=== PATIENT | female | born 1985 | race Asian ===

== ENCOUNTER 2017-01-19 11:07 | Outpatient (CLI) | payer MEDICAID ==
[~2017-01-19] VITALS: Ht 154.9 cm; Wt 60.7 kg
[2017-01-19] MEDS ORDERED: PRENAT PO (11:13)
[2017-01-19 11:14] VITALS: Ht 154.9 cm; Wt 60.7 kg
[2017-01-19 11:16] VITALS: BP 108/66; PULSE 72; RESP 18
--- NOTE | 2017-01-19 12:23 | RADRPT ---
PROCEDURE: OB ultrasound for biophysical profile CLINICAL INDICATION: Poor tone. TECHNIQUE: Multiple sonographic images of the pelvis were obtained. Transabdominal views of the g ravid uterus are available for review. The images were reviewed on a PACS workstation. COMPARISON: None FINDINGS: breathing movement = 2/2 tone = 2/2 motion = 2/2 JACKELYN = 2/2 JACKELYN = 16.4 cm Single live intrauterine with cardiac activity of 144 bpm. position is cephal ic. The placenta is left lateral. IMPRESSION: 1. Single live intrauterine gestation. 2. Biophysical profile = 8/8. 3. JACKELYN = 16.4 cm. RPTAT: HH .Jeannine Mcallister MD, MD Date Time Electronically viewed and signed by .Jeannine Mcallister MD, on 01/19/2017 12:23 .G/
--- NOTE | 2017-01-19 12:25 | RADRPT ---
PROCEDURE: US OB. CLINICAL INDICATION: Decreased movement TECHNIQUE: Multiple sonographic images of the pelvis were obtained. Transabdominal imaging only w as performed. The images were reviewed on a PACS workstation. COMPARISON: No prior studies are available for comparison. FINDINGS: There is a single live intrauterine gestation. Cardiac activity is present with 137 beats per minut e. position is cephalic. Measurements were made in order to determine age. The results are as follows: BPD = 8.77 cm HC = 31.80 cm AC = 36.65 cm FL = 7.54 cm. Estimated gestational age of approximately 37 weeks 4 days. The estimated date of delivery is 02/05/2017. The EFW = 3617 g, 56.6 %ile. The placenta is left lateral. There is no evidence for an abruption or placenta previa. There are no adnexal masses. IMPRESSION: 1. Single live intrauterine gestation of approximately 37 weeks 4 days, by ultrasound criteria. 2. The estimated date of delivery is 02/05/2017. 3. The estimated weight is 3617 g, 56.6 %ile. RPTAT: HH .Jeannine Mcallister MD, Date Time Electronically viewed and signed by .Jeannine Mcallister MD, on 01/19/2017 12:24 .G/
--- NOTE | 2017-01-19 13:26 | PN ---
Triage Information Date/Time Reason for visit: Uterine contractions Weeks of Gestation 39 weeks and 4 days /Para Diabetes: none Hypertention: none Objective Vital Signs Date Time Temp Pulse Resp B/P Pulse Ox O2 Delivery O2 Flow Rate FiO2 01/19/17 11:16 98.1 72 18 108/66 Room Air Heart Rate: 130's Contractions: >10 Minutes Apart Exam Pelvic examination cervix closed 40% effaced 6 at -1 -2 station Disposition: Discharge Assessment/Plan 39 weeks 4 days 1 para 0 rule out labor contractions mild far apart patient only feels tightening of the abdomen pelvic examination cervix 1 cm 40% effaced vertex at -2 station and had biophysical profile 02/19 admitted weight approximately 3600 g patient discharged home with the lid instruction recommended to follow at the clinic on her appointment TAMI POZO MD Jan 19, 2017 13:26
--- NOTE | 2017-01-19 14:19 | TRIAGE ---
OB Triage Datetime Report Generated by CPN: 01/19/2017 14:19 Datetime: 01/19/2017 11:54 Labor Evaluation Frequency: 2-7 Monitor Mode: External Duration (sec)2399: 30-180 Quality: Moderate Pattern: Normal: <= 5 Contractions in 10 Minutes Resting Tone [place]: Relaxed Heart Rate FHR Baseline Rate: 140 Monitor Mode: External US FHR Baseline Changes: No Baseline Change Variability: Moderate 6-25 bpm Accelerations: 15X15 Decelerations: None Category: Category I Comments: NST done. Monitors removed Pain Assessment Pain Presence: None/Denies Pain Assessment Comments: Pt denies having pain or pressure with contractions, no pain Datetime: 01/19/2017 11:22 Time of Arrival: 01/19/2017 10:55 EGA: 39.4 Arrived By: Ambulatory Arrived From: Home Chief Complaint: Sent from clinic to come today for BPP/EFW/NST Movement: Present Contractions: Denies/Absent Rupture of Membranes: Denies Vaginal Discharge: Denies Recent Sexual Intercouse: Denies Abdominal Trauma: Not Applicable Patient Complaints: None Time Provider Notified: 01/19/2017 12:49 Provider Notified: [facility] Initial Plan: BPP/EFW/NST Datetime: 01/19/2017 11:10 Assessment Type: Triage Maternal Assessment Level of Consciousness: Fully Conscious DTR's/Clonus: DTRs 2+; No Clonus Headache: Denies Blurred Vision: No Respiratory Effort: Unlabored; Regular Rhythm; Equal Expansion Breath Sounds, Left: Clear and Equal Breath Sounds, Right: Clear and Equal Nausea/Vomiting: Denies RUQ Epigastric Pain: Denies Lower Extremities Edema: None Degree: None Upper Extremities Edema: None Degree: None Facial Edema: None Fall Risk Assessment History of Falling: (0) No Secondary Diagnosis: (0) No Ambulatory Aid: (0) Bedrest/Nurse Assist IV Therapy: (0) No Gait: (0) Normal/Bedrest/Immobile Mental Status: (0) Oriented to Own Ability Fall Score: 0 Fall Risk Score Definition: No Risk: No action required Datetime: 01/19/2017 11:08 Stage of : OB Triage
== END 2017-01-19 13:35 | disposition home or self-care (01) ==
LOC: OBT 11:07 → L-D 11:08 → OBT 13:35
PROVIDERS: ATTEND Obstetrics & Gynecology
DX: O62.9 Abnormality of forces of labor, unspecified (principal); Z3A.39 39 weeks gestation of pregnancy
CPT/HCPCS: 76815; 76818; Z7500; G0463

== ENCOUNTER 2017-01-25 02:50 | Inpatient (IN) | payer MEDICAID ==
[~2017-01-25] VITALS: Ht 154.9 cm; Wt 63.3 kg
[~2017-01-25 02:50] MED LIST: PRENAT PO
[2017-01-25 03:19] VITALS: BP 99/68; PULSE 61; RESP 18
[2017-01-25] MEDS ORDERED: OXYTOCIN 30 UNITS/LR 500 ML IV SCH ×3 (04:30→17:30)
[2017-01-25] MEDS ORDERED: BUTORPHANOL 2 MG INJ IV PRN (04:30)
[2017-01-25] MEDS ORDERED: MISOPROSTOL 200 MCG TAB PR PRN (04:30)
[2017-01-25] MEDS ORDERED: CARBOPROST 250 MCG INJ IM PRN (04:30)
[2017-01-25] MEDS ORDERED: LIDOCAINE 1% (MPF) 30 ML INJ INJ PRN (04:30)
[2017-01-25] MEDS ORDERED: METHYLERGONOVINE 0.2 MG INJ IM PRN (04:30)
[2017-01-25] MEDS ORDERED: MINERAL OIL LIGHT 10 ML VIAL TOP ONE (04:30)
[2017-01-25] MEDS ORDERED: OXYTOCIN 30 UNITS/LR 500 ML IV PRN (04:30)
[2017-01-25] MEDS ORDERED: IBUPROFEN 600 MG TAB PO PRN (04:30)
[2017-01-25] MEDS: LACTATED RINGER'S 1,000 ML IV SCH ×4 (05:06→23:22)
[2017-01-25 05:19] LABS: BASOPHILS % 0.2 % (0.0-2.0); EOSINOPHILS # 0.1 10^3/ul (0.0-0.5); EOSINOPHILS % 0.7 % (0.0-7.0); HEMATOCRIT 34.5 % (37.0-47.0); HEMOGLOBIN 11.8 g/dl (12.0-16.0); LYMPHOCYTES # 1.9 10^3/ul (0.8-2.9); LYMPHOCYTES % 16.8 % (15.0-51.0); MEAN CORPUSCULAR HEMOGLOBIN 29.9 pg (29.0-33.0); MEAN CORPUSCULAR HGB CONC 34.2 g/dl (32.0-37.0); MEAN CORPUSCULAR VOLUME 87.3 fl (82.0-101.0); MEAN PLATELET VOLUME 10.1 fl (7.4-10.4); MONOCYTES % 8.6 % (0.0-11.0); NEUTROPHIL # 8.3 10^3/ul (1.6-7.5); NEUTROPHILS % 72.8 % (39.0-77.0); PLATELET COUNT 251 10^3/UL (140-415); RED BLOOD COUNT 3.95 10^6/ul (4.20-5.40); RED CELL DISTRIBUTION WIDTH 13.8 % (11.5-14.5); WHITE BLOOD COUNT 11.3 10^3/ul (4.8-10.8)
--- NOTE | 2017-01-25 05:22 | TRIAGE ---
OB Triage Datetime Report Generated by CPN: 01/25/2017 05:22 Datetime: 01/25/2017 05:00 Assessment Type: Admission Assessment Maternal Assessment Level of Consciousness: Fully Conscious DTR's/Clonus: DTRs 2+; No Clonus Headache: Denies Headache: Denies Blurred Vision: No Blurred Vision: Yes Respiratory Effort: Unlabored; Regular Rhythm; Equal Expansion Breath Sounds, Left: Clear and Equal Breath Sounds, Right: Clear and Equal Nausea/Vomiting: Denies RUQ Epigastric Pain: Denies Lower Extremities Edema: None Degree: None Upper Extremities Edema: None Degree: None Facial Edema: None Fall Risk Assessment History of Falling: (0) No Secondary Diagnosis: (0) No Ambulatory Aid: (0) Bedrest/Nurse Assist IV Therapy: (0) No Gait: (0) Normal/Bedrest/Immobile Mental Status: (0) Oriented to Own Ability Datetime: 01/25/2017 03:59 Vaginal Exam Dilatation (cms): 3.0 Datetime: 01/25/2017 03:55 Vaginal Exam Dilatation (cms): 3.5 Effacement (%): 60 Station: -2 Exam By: SRIDHAR Membrane Status: Intact Datetime: 01/25/2017 03:53 Stage of : OB Triage Vaginal Exam Dilatation (cms): 3.0 Effacement (%): 60 Station: -2 Exam By: Sander Martinez RN Membrane Status: Intact Vaginal Bleeding: Scant Cervix, Consistency: Soft Cervix, Position: Posterior Presentation 'A': Cephalic Datetime: 01/25/2017 03:40 Labor Evaluation Frequency: 3-6 Monitor Mode: External Quality: Moderate Pattern: Normal: <= 5 Contractions in 10 Minutes Resting Tone [place]: Relaxed Heart Rate FHR Baseline Rate: 135 Monitor Mode: External US FHR Baseline Changes: No Baseline Change Variability: Moderate 6-25 bpm Accelerations: 10X10 Decelerations: None Category: Category I Datetime: 01/25/2017 03:28 Time of Arrival: 01/25/2017 02:52 EGA: 40.3 Arrived By: Wheelchair Arrived From: Home Chief Complaint: c/o ucs Movement: Present Contractions: Regular Rupture of Membranes: Denies Vaginal Bleeding: Scant Vaginal Discharge: Present Recent Sexual Intercouse: Denies Abdominal Trauma: Not Applicable Patient Complaints: Contractions Time Provider Notified: 01/25/2017 04:00 Provider Notified: Dr Yee Initial Plan: EFM,SVE Datetime: 01/25/2017 03:13 Stage of : OB Triage Maternal Assessment Level of Consciousness: Fully Conscious Headache: Denies Blurred Vision: No Respiratory Effort: Unlabored Nausea/Vomiting: Denies RUQ Epigastric Pain: Denies Facial Edema: None Monitor Mode: External Quality: Moderate Resting Tone [place]: Relaxed Heart Rate FHR Baseline Rate: 130 Monitor Mode: External US Accelerations: 15X15 Decelerations: None Category: Category I Pain Assessment Pain Scale: 6 Pain Presence: Intermittent Pain Type: Contraction Pain Location: Abdomen Datetime: 01/19/2017 11:22 EGA: 39.4 Datetime: 01/19/2017 11:10 Fall Score: 0 Fall Risk Score Definition: No Risk: No action required
[2017-01-25 05:35] LABS: INR 0.86; PARTIAL THROMBOPLASTIN TIME 26.1 Sec (25.0-35.0); PROTIME 11.7 Sec (12.2-14.2); PT RATIO 0.9
--- NOTE | 2017-01-25 07:04 | HP ---
Date/Time of Note Date/Time of Note DATE: 01/25/17 TIME: 06:53 OB - History Hx of Present Free Text/Dictation 31 y.o primigravida at 40w3d with c/o uterine contractions every 4min apart since 2300 01/24/17. had care in different clinic till November when she was transferred to present clinic. Initial VE 3/60%/-2 EFM tracing reactive admitted for expectant management GBS neg chlamydia pos treated recheck neg Chief Complaint: uterine contraction Estimated Due Date: Jan 22, 2017 : 1 Para: 0 Spontaneous : 0 Therapeutic : 0 Care: Other Ultrasounds: Other Obstetrical Complications: None Medical Complications: None Past Family/Social History * Past Medical, Surgical, Family and Obstetric Histories reviewed from chart. Blood Type: Unknown Rubella: unknown RPR/VDRL: Unknown GBS Status: Negative HBsAG: Unknown OB Admission Exam Vital Signs Vital Signs Vital Signs Date Time Temp Pulse Resp B/P Pulse Ox O2 Delivery O2 Flow Rate FiO2 01/25/17 03:19 97.8 61 18 99/68 Room Air Physical Exam HEENT: WNL Heart: Rhythm Normal Lungs: Clear, Equal Abdomen: WNL Extremities: Normal Reflexes: Normal Cervical Dilatation: 3cm Effacement: Other (60%) Station: -2 Membranes: Intact Amniotic Fluid: Unevaluable Heart Rate: 140's Accelerations: Accelerations Present Decelerations: No Decelerations Varibility: Moderate Contractions on Admission: < 5 Minutes Apart Intensity: Moderate Last 72 hours Lab Results CBC & BMP 01/25/17 05:00 OB Assessment/Plan Reason for admission: active labor Plan: Expectant Management JANEEN GORDILLO MD Jan 25, 2017 07:03
[2017-01-25] MEDS: LACTATED RINGER'S 1,000 ML IV PRN ×2 (07:55→08:47)
[2017-01-25] MEDS ORDERED: FENTAnyl 2MCG/ML-ROPIV 0.2% 100 ML ONE (08:34)
[2017-01-25] MEDS ORDERED: DIPHENHYDRAMINE 50 MG INJ IV PRN (15:00)
[2017-01-25] MEDS ORDERED: NALOXONE (0.4 MG/ML) INJ IV PRN (15:00)
[2017-01-25] MEDS: ONDANSETRON 4 MG INJ IV PRN (15:05)
[2017-01-25] MEDS: FENTAnyl 2MCG/ML-ROPIV 0.2% 100 ML BAG EPI SCH (15:50)
[2017-01-26] MEDS: FENTAnyl 2MCG/ML-ROPIV 0.2% 100 ML BAG EPI SCH ×3 (00:11→11:23)
[2017-01-26] MEDS: LACTATED RINGER'S 1,000 ML IV SCH ×3 (07:24→23:58)
--- NOTE | 2017-01-26 10:50 | RADRPT ---
PROCEDURE: US OB. CLINICAL INDICATION: Size and dates TECHNIQUE: Multiple sonographic images of the pelvis and gravid uterus were obtained. The images were reviewed on a PACS workstation. COMPARISON: 01/19/17 FINDINGS: There is a single viable intrauterine gestation. Cardiac activity is present with 125 beats per min johny. There is a vertex presentation. The placenta is posterior. There is no evidence for an abruption or placenta previa. Measurements were made in order to determine age. The results are as follows: BPD =8.7 cm HC =31.7 cm AC =33.7 cm FL =7.4 cm Estimated gestational age of approximately 36 weeks and 4 days based on ultrasound measurements. Clinical age: 40 weeks and 4 days. The estimated date of delivery is 02/19/17, based on ultrasound measurements. The EFW = 3116 g, 10%, based on LMP age. RPTAT: AA IMPRESSION: Single viable intrauterine gestation of approximately 36 weeks and 4 days based on ultrasound measu rements. Smaller than clinical age by 4 weeks. .Jd Bryan MD, MD Date Time Electronically viewed and signed by .Jd Bryan MD, on 01/26/2017 10:49 .S/
[2017-01-26] MEDS ORDERED: CEFAZOLIN 2 GM/50 ML (PMX) 50 ML IVPB ONE ×2 (12:54→13:00)
[2017-01-26] MEDS: ONDANSETRON 4 MG INJ IV PRN (13:35)
[2017-01-26] MEDS ORDERED: LIDOCAINE 2%/EPI MPF (SDV) 20 ML VIAL ONE (14:00)
[2017-01-26] MEDS ORDERED: CEFAZOLIN 1 GM INJ ONE (14:00)
[2017-01-26] MEDS ORDERED: OXYTOCIN 30 UNITS/LR 500 ML BAG IV ONE (14:00)
[2017-01-26] MEDS ORDERED: FENTAnyl 50 MCG/ML VIAL ONE (14:21)
[2017-01-26] MEDS ORDERED: MIDAZOLAM 1 MG/ML 2 ML INJ ONE (14:35)
[2017-01-26] MEDS ORDERED: DEXAMETHASONE 4 MG/ML 1 ML INJ ONE (14:39)
[2017-01-26] MEDS ORDERED: OXYTOCIN 10 UNIT INJ ONE (14:54)
[2017-01-26] MEDS ORDERED: morphine SULFATE/PF (10 MG/10 ML) INJ ONE (14:56)
--- NOTE | 2017-01-26 15:48 | PN ---
Date/Time of Note Date/Time of Note DATE: 01/26/17 TIME: 15:42 OB Subjective Subjective Subjective at 40 + wks ga AROM positive thick meconium vaginal exam 6/100%/ -2 NST positive variable decels toco regular contraction on oxytocin A/P Patient remained at 6 cm for more than 4hrs Patient was counseled regarding primary LTCS secondary to CPD/ failure to descent All risks including but not limited to infection, bleeding, possible trauma to other organs were discussed with the patient All questions were answered. Patient understood and agreed to proceed with primary C/section KOREY MACDONALD MD Jan 26, 2017 15:48
[2017-01-26] MEDS ORDERED: KETOROLAC 30 MG INJ ONE (15:56)
--- NOTE | 2017-01-26 15:58 | OPR ---
Operative Report Planned Procedure Free Text/Dictation at 40 + wks gestation with CPD/ failure to descent Procedure date Jan 26, 2017 Procedure(s) Primary LTCS Performed by Korey Macdonald MD Assisting provider: TERRIE VICTORIA M.D. Anesthesiologist: ANEUDY EVANS Pre-procedure diagnosis CPD/ failure to descent Anesthesia Type: epidural Procedure Description Under satisfactory [epidural] anesthesia, the patient was prepped and draped and placed in a supine position, tilted to the left. Pfannenstiel incision was made, carried through the subcutaneous tissue. Bleeders brought under control with electrocautery. Fascia incised to the length of the incision. Rectus muscles from the fascia, divided midline. Peritoneum exposed, entered through a transverse incision. Exploration of abdomen revealed gravid uterus. Bladder flap was developed. Transverse incision was made in the lower segment of the uterus. Amniotic sac ruptured. [thick meconium] amniotic fluid noted. Nasal oropharyngeal suction was performed. The baby was handed to the team for immediate attention. The placenta was delivered manually intact. Uterine cavity was cleaned with wet sponge and drainage established. Uterus closed in 2 layers using [1.0 Vicryl] in running locked and second layer imbricating fashion. Peritoneal cavity irrigated with warm saline. Sponge, needle and instrument count reported to be correct. Abdominal peritoneum closed with [2.0 Vicryl] continuously. Rectus muscle approximated with [2.0 Vicryl]. Fascia closed with [0 Vicryl in two separate segment], and skin closed with End- sorb min. Estimated blood loss [500]mL. Urine bag contained [150]mL of urine. IVF 1200 cc Post-Procedure Findings: Live Baby [girl], Apgars [9,9], weight [3520gr/7 lbs. 13 oz.] Estimated blood loss: other (500) Specimen(s): yes (see below) Specimen(s) description placenta Grafts/Implants: no Complication(s): no Pt Condition post procedure: stable Disposition: PACU Physician Certification I, the undersigned physician, hereby certify that I have discussed the procedure described in this consent form with this patient (or the patient's legal account service representative), including: * The risk and benefits of the procedure; * Any adverse reactions that may reasonably be expected to occur; * Any alternative efficacious methods of treatment which may be medically viable ; * The potential problems that may occur during recuperation; * Potential for blood transfusion and associated risks/benefits; and * Any research or economic interest I may have regarding this treatment. I further certify that the patient/legally responsible person was encouraged to ask question and that all questions were answered. KOREY MACDONALD MD Jan 26, 2017 15:58
[2017-01-26] MEDS ORDERED: HYDROmorphONE 1 MG/ML SYG IV PRN ×2 (16:00)
[2017-01-26] MEDS ORDERED: ACETAMINOPHEN 325 MG TAB PO PRN (16:00)
[2017-01-26] MEDS ORDERED: MAGNESIUM HYDROXIDE 30ML CUP PO PRN (16:00)
[2017-01-26] MEDS ORDERED: DIPHENHYDRAMINE 50 MG INJ IV PRN (16:00)
[2017-01-26] MEDS ORDERED: SENNA/DOCUSATE NA (8.6MG/50MG) TAB PO PRN (16:00)
[2017-01-26] MEDS ORDERED: CARBOPROST 250 MCG INJ IM PRN (16:00)
[2017-01-26] MEDS ORDERED: BISACODYL 10 MG SUPP PR PRN (16:00)
[2017-01-26] MEDS ORDERED: ONDANSETRON 4 MG INJ IV PRN ×2 (16:00)
[2017-01-26] MEDS ORDERED: ZOLPIDEM 5 MG TAB PO PRN (16:00)
[2017-01-26] MEDS ORDERED: MISOPROSTOL 200 MCG TAB PR PRN (16:00)
[2017-01-26] MEDS ORDERED: LANOLIN 7 GM TUBE TOP PRN (16:00)
[2017-01-26] MEDS ORDERED: NALOXONE (0.4 MG/ML) INJ IV PRN (16:00)
[2017-01-26] MEDS ORDERED: METHYLERGONOVINE 0.2 MG INJ IM PRN (16:00)
[2017-01-26] MEDS ORDERED: OXYTOCIN 30 UNITS/LR 500 ML IV PRN (16:00)
[2017-01-26] MEDS: KETOROLAC 30 MG INJ IV PRN (16:01)
[2017-01-26] MEDS: OXYTOCIN 30 UNITS/LR 500 ML IV SCH ×2 (17:22→20:55)
[2017-01-26 18:15] VITALS: BP 126/77; PULSE 86; RESP 18
[2017-01-26 18:36] VITALS: BP 110/72; PULSE 87; RESP 18
[2017-01-26 20:00] VITALS: BP 119/67; PULSE 78; RESP 18
[2017-01-26] MEDS: CEFAZOLIN 1 GM/50 ML (PMX) 50 ML IVPB SCH (21:45)
[2017-01-27] VITALS: BP 115/74; PULSE 82; RESP 17
[2017-01-27] MEDS: LACTATED RINGER'S 1,000 ML IV SCH ×7 (01:23→23:58)
[2017-01-27 04:00] VITALS: BP 104/56; PULSE 80; RESP 17
[2017-01-27] MEDS: CEFAZOLIN 1 GM/50 ML (PMX) 50 ML IVPB SCH ×2 (05:53→14:17)
[2017-01-27] MEDS: KETOROLAC 30 MG INJ IV PRN ×2 (06:06→12:45)
[2017-01-27 07:45] VITALS: BP 81/54; PULSE 64; RESP 16
[2017-01-27 09:32] LABS: ABNORMAL IP MESSAGE 1; BASOPHILS % 0.1 % (0.0-2.0); EOSINOPHILS # 0.1 10^3/ul (0.0-0.5); EOSINOPHILS % 0.3 % (0.0-7.0); HEMATOCRIT 24.9 % (37.0-47.0); HEMOGLOBIN 8.6 g/dl (12.0-16.0); LYMPHOCYTES # 2.3 10^3/ul (0.8-2.9); MEAN CORPUSCULAR HEMOGLOBIN 30.5 pg (29.0-33.0); MEAN CORPUSCULAR HGB CONC 34.5 g/dl (32.0-37.0); MEAN CORPUSCULAR VOLUME 88.3 fl (82.0-101.0); MONOCYTE # 1.6 10^3/ul (0.3-0.9); MONOCYTES % 8.5 % (0.0-11.0); NEUTROPHIL # 15.1 10^3/ul (1.6-7.5); PLATELET COUNT 177 10^3/UL (140-415); RED BLOOD COUNT 2.82 10^6/ul (4.20-5.40); RED CELL DISTRIBUTION WIDTH 14.1 % (11.5-14.5); WHITE BLOOD COUNT 19.4 10^3/ul (4.8-10.8)
[2017-01-27 09:40] LABS: POSITIVE DIFF @See below
[2017-01-27 09:51] LABS: ALBUMIN 2.2 g/dl (3.3-4.9); ALBUMIN/GLOBULIN RATIO 0.91; BILIRUBIN,INDIRECT 0.8 mg/dl (0-1.1); BILIRUBIN,TOTAL 0.8 mg/dl (0.2-1.3); CALCIUM 7.9 mg/dl (8.4-10.2); CREATININE 0.75 mg/dl (0.44-1.00); POTASSIUM 3.8 mmol/L (3.5-5.1); TOTAL PROTEIN 4.6 g/dl (6.1-8.1)
[2017-01-27 12:00] VITALS: BP 78/50; PULSE 81; RESP 16
[2017-01-27 15:30] VITALS: BP 87/51; PULSE 67; RESP 16
[2017-01-27] MEDS ORDERED: IBUPROFEN 600 MG TAB PO PRN (16:00)
[2017-01-27] MEDS ORDERED: OXYCODONE/ACETAMINOPHEN (5/325) TAB PO PRN (16:00)
[2017-01-27] MEDS: OXYCODONE/ACETAMINOPHEN (5/325) TAB PO PRN (17:50)
--- NOTE | 2017-01-27 18:30 | QN ---
Documentation Comment No complaint Afebrile VSS Abdomen soft ND POD #1 Stable Ambulate Advance diet. PRUDENCIO MOLINA MD Jan 27, 2017 18:30
[2017-01-27 20:00] VITALS: BP 98/54; PULSE 78; RESP 17
[2017-01-27] MEDS: DIBUCAINE 1% 30 GM OINT TOP SCH (22:35)
[2017-01-28] MEDS: OXYCODONE/ACETAMINOPHEN (5/325) TAB PO PRN ×2 (00:54→13:22)
[2017-01-28 04:00] VITALS: BP 94/61; PULSE 66; RESP 17
[2017-01-28 07:40] VITALS: BP 117/72; PULSE 89; RESP 19
[2017-01-28 10:01] LABS: BASOPHILS % 0.1 % (0.0-2.0); EOSINOPHILS # 0.1 10^3/ul (0.0-0.5); EOSINOPHILS % 0.4 % (0.0-7.0); HEMATOCRIT 27.5 % (37.0-47.0); LYMPHOCYTES # 2.1 10^3/ul (0.8-2.9); LYMPHOCYTES % 10.8 % (15.0-51.0); MEAN CORPUSCULAR HEMOGLOBIN 28.9 pg (29.0-33.0); MEAN CORPUSCULAR HGB CONC 32.7 g/dl (32.0-37.0); MEAN CORPUSCULAR VOLUME 88.4 fl (82.0-101.0); MEAN PLATELET VOLUME 10.1 fl (7.4-10.4); MONOCYTE # 1.1 10^3/ul (0.3-0.9); MONOCYTES % 5.7 % (0.0-11.0); NEUTROPHIL # 15.7 10^3/ul (1.6-7.5); NEUTROPHILS % 82.2 % (39.0-77.0); PLATELET COUNT 220 10^3/UL (140-415); RED BLOOD COUNT 3.11 10^6/ul (4.20-5.40); RED CELL DISTRIBUTION WIDTH 14.4 % (11.5-14.5); WHITE BLOOD COUNT 19.1 10^3/ul (4.8-10.8)
[2017-01-28] MEDS: DIBUCAINE 1% 30 GM OINT TOP SCH ×4 (10:48→21:06)
--- NOTE | 2017-01-28 15:41 | QN ---
Documentation Comment pod2 pt doing well vss exam wnl cdi ap pod 2 continue care DEANNE CONNELLY MD Jan 28, 2017 15:41
[2017-01-28 15:59] VITALS: BP 103/63; PULSE 87; RESP 18
[2017-01-28 20:00] VITALS: BP 101/60; PULSE 81; RESP 18
[2017-01-29 04:30] VITALS: BP 99/60; PULSE 75; RESP 18
[2017-01-29 08:00] VITALS: BP 107/65; PULSE 65; RESP 18
[2017-01-29] MEDS: DIBUCAINE 1% 30 GM OINT TOP SCH ×3 (09:05→17:00)
[2017-01-29 11:19] LABS: BASOPHILS % 0.1 % (0.0-2.0); EOSINOPHILS # 0.2 10^3/ul (0.0-0.5); EOSINOPHILS % 1.1 % (0.0-7.0); HEMATOCRIT 24.9 % (37.0-47.0); HEMOGLOBIN 8.4 g/dl (12.0-16.0); LYMPHOCYTES # 1.4 10^3/ul (0.8-2.9); LYMPHOCYTES % 9.1 % (15.0-51.0); MEAN CORPUSCULAR HEMOGLOBIN 30.3 pg (29.0-33.0); MEAN CORPUSCULAR HGB CONC 33.7 g/dl (32.0-37.0); MEAN CORPUSCULAR VOLUME 89.9 fl (82.0-101.0); MEAN PLATELET VOLUME 9.5 fl (7.4-10.4); MONOCYTE # 0.8 10^3/ul (0.3-0.9); MONOCYTES % 5.2 % (0.0-11.0); NEUTROPHIL # 12.5 10^3/ul (1.6-7.5); NEUTROPHILS % 83.5 % (39.0-77.0); PLATELET COUNT 216 10^3/UL (140-415); RED BLOOD COUNT 2.77 10^6/ul (4.20-5.40); RED CELL DISTRIBUTION WIDTH 14.2 % (11.5-14.5)
--- NOTE | 2017-01-29 14:03 | DS ---
Date/Time of Note Date/Time of Note DATE: 01/29/17 TIME: 14:02 Obstetrical Discharge Record Final Diagnosis Final Diagnosis: Term delivered Section Section: Primary Primary Indication CPD Condition on Discharge Physical Assessment Voiding: Yes Bowel Movement: Yes Breast: Soft, non-tender Fundus: Firm Abdomen and Incision: Incision intact Calf Tenderness: No Patient Condition: Stable PRUDENCIO MOLINA MD Jan 29, 2017 14:03
[2017-01-29 16:00] VITALS: BP 112/62; PULSE 72
== END 2017-01-29 18:35 | disposition home or self-care (01) | DRG 766 ==
LOC: OBT 02:50 → L-D 03:20 → OBT 04:00 → L-D 01-26 14:17 → PP1 01-26 18:07
PROVIDERS: ADMIT Obstetrics & Gynecology; ATTEND Obstetrics & Gynecology
PROC: 10D00Z1 Extraction of Products of Conception, Low, Open Approach (ICD-10-PCS; principal; 2017-01-26 14:00)
DX: O48.0 Post-term pregnancy (principal); O33.9 Maternal care for disproportion, unspecified; Z3A.40 40 weeks gestation of pregnancy; O62.0 Primary inadequate contractions; Z37.0 Single live birth
CPT/HCPCS: 36415; 62319; 76816; 80053; 85025; 85610; 85730; 86592; 86900; 86901; 87340; 88307; 99464; G0463; J0690; J1100; J1170; J1885; J2210; J2250; J2274; J2405; J2590; J3010; J7120

== ENCOUNTER 2017-02-04 11:27 | Emergency (ER) | payer MEDICAID ==
[~2017-02-04] VITALS: Ht 160 cm; Wt 54.0 kg
[2017-02-04 12:49] VITALS: Ht 160 cm; Wt 54.0 kg
[2017-02-04] MEDS ORDERED: CEPH-443 PO (12:49)
--- NOTE | 2017-02-04 13:07 | ERD ---
ER Documentation Chief Complaint Date/Time DATE: 02/04/17 TIME: 13:03 Chief Complaint 01/26 WITH DRAINAGE SINCE LAST SATURDAY HPI 31-year-old female presents to the emergency department with history of C- section on January [address] Juanita Fowler. Patient states that at the C- section site there is mild bleeding that she noted today. She denies any significant tenderness, fevers. Patient states she has appointment this saturday for follow-up ROS All systems reviewed and are negative except as per history of present illness. Medications Home Meds Active Scripts Cephalexin* (Keflex*) 500 Mg Capsule, 500 MG PO QID for 7 Days, CAP Prov:GREGORY IQBAL PA-C 02/04/17 Reported Medications Multivit/Min/Fol Ac/Iron/Pren* ( S*) 1 Tab Tab, 1 TAB PO DAILY, TAB 01/19/17 Allergies Allergies: Coded Allergies: No Known Allergy (Unverified , 01/25/17) PMhx/Soc Medical and Surgical Hx: pt denies Medical Hx History of Surgery: Yes ( 01/26/17) Anesthesia Reaction: No Hx Neurological Disorder: No Hx Respiratory Disorders: No Hx Cardiac Disorders: No Hx Psychiatric Problems: No Hx Miscellaneous Medical Probl: No Hx Alcohol Use: No Hx Substance Use: No Hx Tobacco Use: No Smoking Status: Never smoker Physical Exam Vitals Vital Signs Date Time Temp Pulse Resp B/P Pulse Ox O2 Delivery O2 Flow Rate FiO2 02/04/17 12:49 98.1 86 16 113/93 97 Physical Exam Const: [] Head: Atraumatic Eyes: Normal Conjunctiva ENT: Normal External Ears, Nose and Mouth. Neck: Full range of motion..~ No meningismus. Resp: Clear to auscultation bilaterally Cardio: Regular rate and rhythm, no murmurs Abd: Soft, non tender, non distended. Normal bowel sounds Skin: Seroma at site, no evidence of erythema, warmth or purulent drainage Back: No midline or flank tenderness Ext: No cyanosis, or edema Neur: Awake and alert Psych: Normal Mood and Affect Procedures/MDM This is a 31-year-old female presents to the emergency department with possible seroma, patient had a on January 26 with , No evidence of cellulitis, lymphangitis. Patient appears well and stable to be discharged home with prescription for Keflex and to follow-up with her surgeon today.\She understands and agrees this plan. I have consulted regarding this case , he agrees with plan above Departure Diagnosis: Primary Impression: Seroma Condition: Stable Patient Instructions: Seroma, Postsurgical Additional Instructions: FOLLOW UP WITH YOUR PRIMARY CARE PHYSICIAN TOMORROW.Return to this facility if you are not improving as expected. Take all medicines as directed. Return to this facility if you are not improving as expected. GREGORY IQBAL PA-C Feb 04, 2017 13:07
== END 2017-02-04 13:02 | disposition home or self-care (01) ==
LOC: FTE 11:27
DX: L76.34 Postprocedural seroma of skin and subcutaneous tissue following other procedure (principal)
CPT/HCPCS: 99283

== ENCOUNTER 2019-01-09 05:35 | Inpatient (IN) | payer OTHER ==
[~2019-01-09] VITALS: Ht 152.4 cm; Wt 63.7 kg
[~2019-01-09 05:35] MED LIST changes: +CEPH-443 PO; +DOCU-144 PO; +FER325 PO; +IBUP-1542 PO
[2019-01-09] MEDS ORDERED: OXYTOCIN 30 UNITS/LR 500 ML IV PRN ×2 (06:30→15:30)
[2019-01-09] MEDS ORDERED: CEFAZOLIN 2 GM/50 ML (PMX) 50 ML IVPB SCH (06:30)
[2019-01-09] MEDS ORDERED: METHYLERGONOVINE 0.2 MG INJ IM PRN ×2 (06:30→15:30)
[2019-01-09] MEDS ORDERED: MISOPROSTOL 200 MCG TAB PR PRN ×2 (06:30→15:30)
[2019-01-09] MEDS ORDERED: CARBOPROST 250 MCG INJ IM PRN ×2 (06:30→15:30)
[2019-01-09] MEDS: LACTATED RINGER'S 1,000 ML IV SCH ×2 (07:38→14:10)
[2019-01-09] MEDS ORDERED: OXYTOCIN 30 UNITS/LR 500 ML BAG IV ONE (09:17)
[2019-01-09] MEDS ORDERED: ONDANSETRON 4 MG INJ ONE (09:17)
[2019-01-09] MEDS ORDERED: OXYTOCIN 10 UNIT INJ ONE (09:17)
[2019-01-09] MEDS ORDERED: morphine SULFATE/PF (10 MG/10 ML) INJ ONE (09:17)
[2019-01-09] MEDS ORDERED: METOCLOPRAMIDE 10 MG INJ ONE (10:00)
[2019-01-09] MEDS: OXYTOCIN 30 UNITS/LR 500 ML IV SCH ×4 (10:40→23:17)
[2019-01-09] MEDS ORDERED: KETOROLAC 30 MG INJ IV PRN (11:00)
[2019-01-09] MEDS ORDERED: DIPHENHYDRAMINE 50 MG INJ IV PRN (11:00)
[2019-01-09] MEDS ORDERED: NALOXONE (0.4 MG/ML) INJ IV PRN (11:00)
[2019-01-09] MEDS ORDERED: ONDANSETRON 4 MG INJ IV PRN (11:00)
[2019-01-09] MEDS ORDERED: morphine 2 MG INJ IV PRN (11:00)
[2019-01-09 15:25] VITALS: BP 99/54; PULSE 62; RESP 18
[2019-01-09] MEDS ORDERED: OXYCODONE/ACETAMINOPHEN (5/325) TAB PO PRN (15:30)
[2019-01-09] MEDS ORDERED: LANOLIN HPA 1 PKT TOP PRN (15:30)
[2019-01-09] MEDS ORDERED: NACL 0.9% 3 ML SYG IV SCH (15:30)
[2019-01-09 20:00] VITALS: BP 115/80; PULSE 68; RESP 20
[2019-01-09] MEDS: SENNA/DOCUSATE NA (8.6MG/50MG) TAB PO SCH (21:00)
[2019-01-10 05:38] VITALS: BP 124/64; PULSE 75; RESP 20
[2019-01-10 08:00] VITALS: BP 108/55; PULSE 69; RESP 18
[2019-01-10] MEDS: SENNA/DOCUSATE NA (8.6MG/50MG) TAB PO SCH ×2 (08:58→21:53)
[2019-01-10] MEDS: IBUPROFEN 600 MG TAB PO SCH ×2 (11:41→17:50)
[2019-01-10 15:52] VITALS: BP 92/56; PULSE 68; RESP 16
[2019-01-10 19:30] VITALS: BP 100/61; PULSE 79; RESP 19
[2019-01-10] MEDS ORDERED: DIBUCAINE 1% 30 GM OINT TOP PRN (20:30)
[2019-01-11] MEDS: IBUPROFEN 600 MG TAB PO SCH ×5 (02:54→23:43)
[2019-01-11 03:30] VITALS: BP 96/52; PULSE 60; RESP 18
[2019-01-11 08:40] VITALS: BP 101/66; PULSE 66; RESP 16
[2019-01-11] MEDS: SENNA/DOCUSATE NA (8.6MG/50MG) TAB PO SCH ×2 (09:25→21:18)
[2019-01-11 16:29] VITALS: BP 96/57; PULSE 71; RESP 18
[2019-01-11 20:00] VITALS: BP 105/68; PULSE 63; RESP 19
[2019-01-12 03:30] VITALS: BP 98/55; PULSE 61; RESP 20
[2019-01-12] MEDS: IBUPROFEN 600 MG TAB PO SCH ×2 (05:23→12:18)
[2019-01-12 08:00] VITALS: BP 100/67; PULSE 62; RESP 18
[2019-01-12 08:03] VITALS: BP 92/59; PULSE 62; RESP 18
[2019-01-12 08:05] VITALS: BP 99/49; PULSE 82; RESP 18
[2019-01-12] MEDS ORDERED: DIPHTH/TET/ACEL PERTUSS (ADULT) 0.5 ML VIAL IM* ONE (09:00)
[2019-01-12] MEDS ORDERED: FERROUS SULFATE (EC) 325 MG TAB PO SCH (09:30)
[2019-01-12] MEDS ORDERED: ASCORBIC ACID 500 MG TAB PO SCH (09:30)
[2019-01-12] MEDS: SENNA/DOCUSATE NA (8.6MG/50MG) TAB PO SCH (10:34)
== END 2019-01-12 14:50 | disposition home or self-care (01) | DRG 787 ==
LOC: L-D 05:35 → PP1 14:49
PROVIDERS: ADMIT Obstetrics & Gynecology; ATTEND Obstetrics & Gynecology
PROC: 10D00Z1 Extraction of Products of Conception, Low, Open Approach (ICD-10-PCS; principal; 2019-01-09 09:00)
DX: O34.211 Maternal care for low transverse scar from previous cesarean delivery (principal); D62 Acute posthemorrhagic anemia; O90.81 Anemia of the puerperium; Z3A.39 39 weeks gestation of pregnancy; Z37.0 Single live birth
CPT/HCPCS: 85025; 85610; 85730; 86592; 86850; 86900; 86901; 87340; 99464; J0690; J2274; J2405; J2590; J2765; J7120